=== PATIENT | male | born 1990 | race Caucasian/White ===

== ENCOUNTER 2016-09-25 17:36 | Emergency (ER) | payer OTHER ==
[2016-09-25 17:49] VITALS: O2SAT 99
[2016-09-25] MEDS ORDERED: Hydromorphone 1 mg/ml Ampule IM ONE (18:09)
[2016-09-25] MEDS ORDERED: Phenergan 25 MG INJ IM ONE (18:10)
[2016-09-25] MEDS ORDERED: Hydromorphone 1 mg/ml Ampule ONE (18:12)
[2016-09-25] MEDS ORDERED: Phenergan 25 MG INJ ONE (18:12)
[2016-09-25 18:35] VITALS: BP 144/75; PULSE 90
--- NOTE | 2016-09-25 18:39 | ERPHSYRPT ---
- History of Present Illness Time Seen by Provider: 09/25/16 17:50 Source: patient Exam Limitations: clinical condition Patient Subjective Stated Complaint: PT REPORTS PLAYING WITH HIS KIDS THIS WEEKEND-STATES LOW BACK PROGRESSIVELY BECAME PAINFUL-MISSED WORK FRIDAY Triage Nursing Assessment: PT PINK WARM ET [id number] EASY ET NONLABORED-NO SIGNS OF INJURY-NO ABRASIONS OR CONTUSIONS Physician History: PATIENT WITH A HISTORY OF LUMBAR HERNIATED DISC X 2 COMPLAINS OF PROGRESSIVE LOW BACK PAIN PAST FEW DAYS. HAS PAIN RADIATING DOWN BOTH LEGS. DENIES INJURY OR TRAUMA Timing/Duration: day(s) Method of Injury: unknown Quality: sharp Back Pain Location: lumbar spine Back Pain Radiation: upper legs Severity of Pain-Max: severe Severity of Pain-Current: severe Associated Symptoms: muscle spasms Previous symptoms: same symptoms as today Allergies/Adverse Reactions: amoxicillin Allergy (Severe, Verified 09/25/16 17:49) THROAT CLOSES penicillin G Allergy (Severe, Verified 09/25/16 17:49) THROAT CLOSES Home Medications: No Home Meds 1 ea UD 09/25/16 [History] Hx Tetanus, Diphtheria Vaccination/Date Given: No Hx Influenza Vaccination/Date Given: No Hx Pneumococcal Vaccination/Date Given: No Immunizations Up to Date: Yes - Review of Systems Constitutional: No Fever, No Chills Eyes: No Symptoms Ears, Nose, & Throat: No Symptoms Respiratory: No Symptoms, No Cough, No Dyspnea Cardiac: No Symptoms, No Chest Pain, No Edema, No Syncope Abdominal/Gastrointestinal: No Symptoms, No Abdominal Pain, No Nausea, No Vomiting, No Diarrhea Genitourinary Symptoms: No Dysuria Musculoskeletal: No Back Pain, No Neck Pain Skin: No Symptoms, No Rash Neurological: No Symptoms, No Dizziness, No Focal Weakness, No Sensory Changes Psychological: No Symptoms Endocrine: No Symptoms All Other Systems: Reviewed and Negative - Past Medical History Pertinent Past Medical History: No - Past Surgical History Past Surgical History: No - Social History Smoking Status: Current every day smoker How long have you smoked: YRS Exposure to second hand smoke: Yes Drug Use: none Patient Lives Alone: No - Nursing Vital Signs Nursing Vital Signs: Initial Vital Signs Temperature 98.7 F Temperature Source Oral Pulse Rate 90 Respiratory Rate 16 Blood Pressure [Right Arm] 144/75 Pain Intensity 5 - Physical Exam General Appearance: no apparent distress, alert Eye Exam: PERRL/EOMI, eyes nml inspection Neck Exam: normal inspection, non-tender, supple, full range of motion, No meningismus, No midline tenderness Respiratory Exam: normal breath sounds, lungs clear, No respiratory distress Cardiovascular Exam: regular rate/rhythm, normal heart sounds Gastrointestinal Exam: soft, normal bowel sounds, No tenderness, No mass Back Exam: normal inspection, vertebral tenderness (THERE IS L-2 TO L-5 SPINAL AND PARASPINAL TENDERNESS), decreased range of motion, muscle spasm Extremity Exam: normal inspection, normal range of motion, No calf tenderness, No pedal edema Peripheral Pulses: carotid (R): 2+, carotid (L): 2+, femoral (R): 2+, femoral (L ): 2+, dorsalis-pedis (R): 2+, dorsalis-pedis (L): 2+ Neurologic Exam: alert, oriented x 3, cooperative, 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, normal mood/affect, nml station & gait, sensation nml, No motor deficits Skin Exam: normal color, warm, dry, No rash SpO2 Interpretation: normal SpO2: 99 Oxygen Delivery: Room Air Ordered Tests: Medication Summary Discontinued Medications Generic Name Dose Route Start Last Admin Trade Name Adrianoq PRN Reason Stop Dose Admin Hydromorphone HCl 1 mg 09/25/16 18:09 09/25/16 18:16 Hydromorphone 1 Mg/Ml Ampule IM 09/25/16 18:10 1 mg STAT ONE Administration Hydromorphone HCl Confirm 09/25/16 18:12 Hydromorphone 1 Mg/Ml Ampule Administered 09/25/16 18:13 Dose 1 mg .ROUTE .STK-MED ONE Promethazine HCl 25 mg 09/25/16 18:10 09/25/16 18:16 Phenergan 25 Mg Inj IM 09/25/16 18:11 25 mg STAT ONE Administration Promethazine HCl Confirm 09/25/16 18:12 Phenergan 25 Mg Inj Administered 09/25/16 18:13 Dose 25 mg .ROUTE .STK-MED ONE - Progress Progress: improved Progress Note: 09/25/16 18:38 ADMINISTERED DILAUDID 1MG/PHENERGAN 25MG IM Counseled pt/family regarding: need for follow-up - Departure Time of Disposition: 18:45 Departure Disposition: Home Clinical Impression: CHRONIC LOW BACK PAIN, DEGENERATIVE DISC DISEASE Condition: Stable Critical Care Time: No Additional Instructions: FOLLOWUP WITH YOUR FAMILY PHYSICIAN FOR EVALUATION AND REFERRAL TO SPINAL SURGEON. TORADOL 10MG EVERY 4 HOURS FOR PAIN NEEDED. NORFLEX 100MG TWICE DAILY NEEDED FOR MUSCLE SPASM. Prescriptions: Ketorolac Tromethamine [Toradol] 10 mg PO Q6H PRN PRN #20 tablet PRN Reason: Pain Orphenadrine Citrate 100 mg [Norflex 100 MG Tablet] 100 mg PO BID #10 tab
== END 2016-09-25 18:54 | disposition home or self-care (01) ==
LOC: ED 17:36
DX: M54.5 Low back pain (principal); G89.29 Other chronic pain; M51.36 Other intervertebral disc degeneration, lumbar region
CPT/HCPCS: 96372; 99284; J1170; J2550